=== PATIENT | female | born 1965 | race Caucasian/White ===

== ENCOUNTER → 2018-06-19 10:05 | Outpatient (CLI) | payer BC | END | disposition home or self-care (01) | LOC: D.HCCARDIO 10:00 | DX: I20.9 Angina pectoris, unspecified (principal) ==

== ENCOUNTER 2018-08-07 11:10 | Outpatient (CLI) | payer BC ==
[~2018-08-07] VITALS: Ht 165.1 cm; Wt 127.3 kg
--- NOTE | ~2018-08-07 | HEMODYNAMI ---
PATIENT:ALEXIS EDMONDS MEDICAL RECORD: [id number] : 65 LOCATION:[facility] ADMISSION DATE: 08/07/18 Generatedon:08/07/201815:26 Patient name: ALEXIS EDMONDS Patient #: [id number] SSN: D OB: 1965 Date of study: 08/07/2018 Page: Of Hemodynamic Procedure Report Patient Data Patient Demographics Procedure consent was obtained First Name: ALEXIS Gender: Female Last Name: GREY : 1965 Patient #: [id number] Age: 52 year(s) Race: Unknown Additional ID: [id number] Contact details [address]: [address] [place] [address] State: [place] City: [place] Zip code: [address] Admission Admission Data Admission Date: 08/07/2018 Admission Time: 11:10 Procedure Procedure Types Cath Procedure Diagnostic Procedure LHC LHC w/Coronaries Procedure Description Procedure Date Procedure Date: 08/07/2018 Procedure Start Time: 15:15 Procedure End Time: 15:25 Procedure Staff Name Function Jose R Thurman RT Monitor Tru Shipley RN Nurse Divine Richmond RT Scrub Robert Rosas MD Performing Physician Procedure Data Cath Procedure Fluoroscopy Diagnostic fluoroscopy Total fluoroscopy Time: 1.3 time: 1.3 min min Diagnostic fluoroscopy Total fluoroscopy dose: 254 dose: 254 mGy mGy Contrast Material Contrast Material Type Amount (ml) Isovue 300 57 Entry Location Entry Primary Successful Side Size Upsize Upsize Entry Closure Johnson ccessful Closure Location (Fr) 1 (Fr) 2 (Fr) Remarks Device Remarks Radial Right 6 Fr Mechanical artery Short Compression Estimated blood loss: 10 ml Diagnostic catheters Device Type Used For End Catheter Placement DIAGNOSTIC [place] 110cm 5 Procedure Fr catheter (060875) Procedure Complications No complications Procedure Medications Medication Administration Route Dosage 0.9% NaCl I.V. 100 ml/hr Oxygen etCO2 Nasal cannula 2 l/min Heparin Flush Bag added to field 2 bags (1000units/500ml NS) Lidocaine 2% added to field 20 Radial Cocktail added to field 1 syringe (Verapomil 2mg/Nitro 400mcg/Heparin 1500units) Versed I.V. 2 mg Fentanyl I.V. 100 mcg Versed I.V. 1 mg Radial Cocktail I.A. 1 syringe (Verapomil 2mg/Nitro 400mcg/Heparin 1500units) Hemodynamics Rest Heart Rate: 71 (bpm) Pressure Samples Time Site Value (mmHg) Purpose Heart Use Rate(bpm) 15:18 LV 119/-19,2 Snapshot 78 Gradients Valve Time Site Site Mean SEP/DFP Peak To Heart Use 1 2 (mmHg) (sec/min) Peak Rate (mmHg) (bpm) Aortic 15:18 LV AO 77 Snapshots Pre Cath Intra NCS Post Cath Vital Signs Time Heart Resp SPO2 etCO2 NIBP Rhythm Pain Sedation Rate (ipm) (%) (mmHg) (mmHg) Status Level (bpm) 15:08:29 68 21 99 6.7 125/74(94) NSR 0 (11) 10(A) , No pain 15:12:57 73 20 90 12.6 120/71(90) NSR 0 (11) 10(A) , No pain 15:17:21 76 18 96 5.2 124/70(93) NSR 0 (11) 10(A) , No pain 15:21:48 81 22 93 7.4 119/72(87) NSR 0 (11) 10(A) , No pain Medications Time Medication Route Dose Verified Delivered Reason Notes Effectiveness by by 15:06:19 0.9% NaCl I.V. 100 Tru Tru Per ml/hr Lorigan Quinten physician RN RN 15:06:28 Oxygen etCO2 2 l/min Tru Tru Per Nasal Quinten Shipley physician cannula RN RN 15:06:40 Heparin Flush added 2 bags Tru Tru used for Bag to Lorigan Lorigan procedure (1000units/500ml field RN RN NS) 15:06:52 Lidocaine 2% added 20ml Tru Tru for local to vial Lorigan Lorigan anesthetic field RN RN 15:07:03 Radial Cocktail added 1 Tru Tru used for (Verapomil to syringe Lorigan Lorigan procedure 2mg/Nitro field RN RN 400mcg/Heparin 1500units) 15:12:59 Versed I.V. 2 mg Tru Tru for sedation Lorigan Lorigan RN RN 15:13:09 Fentanyl I.V. 100 mcg Tru Tru for sedation Quinten Shipley RN, RN 15:15:06 Versed I.V. 1 mg Tru Tru for sedation Quinten Shipley RN, RN 15:17:07 Radial Cocktail I.A. 1 Trumariia Jones for (Verapomil syringe Quinten borrero 2mg/Nitro RN 400mcg/Heparin 1500units) Procedure Log Time Note 14:40:33 Tru Shipley RN sent for patient. Start room use. 14:55:52 Time tracking: Regular hours (M-F 7:00 - 5:00) 14:55:55 Plan of Care:Hemodynamics will remain stable., Cardiac rhythm will remain stable., Comfort level will be maintained., Respiratory function will remain adequate., Patient/ family verbilizes understanding of procedure., Procedure tolerated without complication., Recovers from procedure without complications.. 14:56:04 Patient received from Pre/Post Procedure Room to CCL 3 Alert and oriented. Tansferred to table in Supine position. 14:56:05 Warm blankets applied, and lenin hugger turned on for patient comfort. 14:56:06 Correct patient and procedure confirmed by team. 14:56:07 Signed procedure consent form obtained from patient. 14:56:07 ECG and BP/O2 sat monitors applied to patient. 15:06:19 0.9% NaCl 100 ml/hr I.V. was administered by Tru Shipley RN; Per physician; 15:06:28 Oxygen 2 l/min etCO2 Nasal cannula was administered by Tru Shipley RN; Per physician; 15:06:40 Heparin Flush Bag (1000units/500ml NS) 2 bags added to field was administered by Tru Shipley RN; used for procedure; 15:06:52 Lidocaine 2% 20ml vial added to field was administered by Tru Shipley RN; for local anesthetic; 15:07:03 Radial Cocktail (Verapomil 2mg/Nitro 400mcg/Heparin 1500units) 1 syringe added to field was administered by Tru Shipley RN; used for procedure; 15:07:07 Vital chart was started 15:09:41 Baseline sample Acquired. 15:09:46 Rhythm: sinus rhythm 15:09:47 Full Disclosure recording started 15:10:00 H&P Date Dictated: 07/06/2018 Within 30 days and on chart., H&P Addendum completed by physician on day of procedure. (MUST COMPLETE FOR ALL OUTPATIENTS). 15:10:00 Pre-procedure instructions explained to patient. 15:10:01 Pre-op teaching completed and patient verbalized understanding. 15:10:03 Family in waiting room. 15:10:04 Patient NPO since Midnight. 15:10:06 Is the patient allergic to Iodine/contrast media? No. 15:10:07 Is patient on blood thinner?No 15:10:09 Patient diabetic? No. 15:10:26 Previous problem with sedation/anesthesia? No ? 15:10:27 Snore? Yes 15:10:28 Sleep apnea? Yes 15:10:29 Deviated septum? No 15:10:29 Opens mouth fully? Yes 15:10:30 Sticks out tongue? Yes 15:10:31 Airway obstruction? No ? 15:10:33 Dentures? No ? 15:10:35 Pre procedure: right dorsailis pedis pulse 1+ Palpable, but thready & weak; easily obliterated 15:10:44 Modified Jimy's test Ulnar < 7 seconds 15:10:47 Patient pain scale 0/10 ?. 15:11:30 IV patent on arrival in left forearm with 0.9% NaCl at [facility]. 15:11:33 Lab results completed and on chart. 15:11:38 Right Radial & Right Groin area was prepped with chlora-prep and draped in sterile fashion 15:11:39 Alarms reviewed by R. N. 15:11:39 Sharps counted by scrub and verified by R.N. 15:11:43 Use device set Radial Dx or PCI 15:12:14 --------ALL STOP TIME OUT------ 15:12:15 Final Timeout: patient, procedure, and site verified with staff and physician. All members of the team are in agreement. 15:12:17 Right Radial & Right Groin site verified by team. 15:12:19 Physical assessment completed. ASA score P 2 - A patient with mild systemic disease as per Robert Rosas MD. 15:12:23 Sedation plan: IV Moderate Sedation Medication:Versed, Fentanyl 15:12:59 Versed 2 mg I.V. was administered by Tru Shipley RN; for sedation; 15:13:09 Fentanyl 100 mcg I.V. was administered by Tru Shipley RN; for sedation; 15:15:06 Versed 1 mg I.V. was administered by Tru Shipley RN; for sedation; 15:15:44 Procedure started. 15:15:50 Local anesthetic to right radial artery with Lidocaine 2% by Robert Rosas MD.INITIAL ACCESS ONLY 15:16:32 Tegaderm 4 x 4 (1626W) opened to sterile field. 15:16:33 ACIST Manifold (96224) opened to sterile field. 15:16:34 ACIST Hand Control (80460) opened to sterile field. 15:16:35 ACIST Syringe (59206) opened to sterile field. 15:16:36 Medline Cath Pack ([id number]) opened to sterile field. 15:16:36 Bag Decanter (2002S) opened to sterile field. 15:16:37 DIAGNOSTIC WIRE .035 260cm J wire (511017) opened to sterile field. 15:16:37 MBrace Wrist Support ([id number]) opened to sterile field. 15:16:40 SHEATH 6FR RAIN (4072899) NO COST SUPPLY opened to sterile field. 15:16:52 A 6 Fr Short sheath was inserted into the Right Radial artery 15:17:07 Radial Cocktail (Verapomil 2mg/Nitro 400mcg/Heparin 1500units) 1 syringe I.A. was administered by Robert Rosas MD; for vasodilation; 15:17:43 A DIAGNOSTIC [place] 110cm 5 Fr catheter (681402) was advanced over the wire and used for Procedure. 15:18:32 LV angiography performed. 15:18:34 LV gram done using FERNANDEZ 15:18:47 EF : 60 % 15:18:57 LV hemodynamics recorded. 15:18:59 Injector settings: Ml/sec: 7, Volume: 15, 15:19:44 LCA angiography performed. 15:20:43 RCA angiography performed. 15:21:39 Catheter removed. 15:21:41 TR BAND Large ([id number]) opened to sterile field. 15:21:51 Sheath removed intact; hemostasis achieved with Mechanical Compression to the Right Radial artery. 15:21:53 Procedure ended.(Physican Out) 15:22:19 Fluoroscopy time 01.30 minutes. 15:22:24 Fluoroscopy dose: 254 mGy 15:22:24 Flurop Dose total: 254 15:22:30 Contrast amount:Isovue 300 57ml. 15:22:32 Sharps counted by scrub and verified by R.N. 15:22:36 TR band inflated with 10cc of air. 15:22:40 Insertion/operative site no bleeding no hematoma. 15:22:46 Post-procedure physical assessment completed. ASA score P 2 - A patient with mild systemic disease as per Robert Rosas MD. 15:22:51 Post procedure rhythm: unchanged. 15:22:55 Estimated blood loss: 10 ml 15:23:23 Post procedure instruction explained to patient.Patient verbalizes understanding. 15:23:23 Patient needs reinforcement of post procedure teaching. 15:23:33 Procedure and supply charges have been captured, reviewed, submitted and are correct. 15:23:35 Procedure Complication : No complications 15:24:27 Vital chart was stopped 15:24:27 See physician's report for complete and final results. 15:24:36 Report given to Pre/Post Procedure Room. 15:24:41 Patient transfered to Pre/Post Procedure Room with Stretcher. 15:25:35 Procedure ended. 15:25:35 Full Disclosure recording stopped 15:26:03 End room use (Document Last) Device Usage Item Name Manufacture Quantity Catalog Hospital Part Current Minimal Lot# / Number Charge Number Stock Stock Serial# Code Tegaderm 4 3M 1 1626W [id number] 701761 5 x 4 (1626W) ACIST Acist 1 93709 343081 286774 991342 5 Manifold Medical (90497) Systems Inc ACIST Hand Acist 1 89267 078566 382453 850412 5 Control Medical (20521) Systems Inc ACIST Acist 1 98123 616443 095618 186050 20 Syringe Medical (17329) Systems Inc Medline Medline 1 [id number] 721441 08546 955752 5 Cath Pack ([id number]) Bag Microtek 1 5507886 89937 913847 5 Decanter Medical Inc. () DIAGNOSTIC [facility] 1 610360 703484 500483 560493 30 WIRE .035 260cm J wire (064162) MBrace Advanced 1 140-0250-00 758044 60930 836423 5 Wrist Vascular Support Dynamics (078551803) SHEATH 6FR Cardinal 1 7032410 354382 671435 5 [facility] (0132260) NO COST SUPPLY DIAGNOSTIC Terumo 1 40-9118 327293 905749 441005 5 [place] 110cm 5 Fr catheter (985493) TR BAND Terumo 1 [id number] 361076 495357 283388 40 Large ([id number]) Signature Audit [place] Stage Time Signature Unsigned Intra-Procedure 08/07/2018 Jose R Thurman 3:26:26 PM RT(R) Signatures Monitor : Jose R Thurman RT Signature : Date : Time : [address] [address]
[2018-08-07] MEDS ORDERED: NORCO 10-325 TA1 TAB PO (11:49)
[2018-08-07] MEDS ORDERED: XANAX0.5 MG PO (11:50)
[2018-08-07] MEDS ORDERED: CELEBREX200 MG PO (11:50)
[2018-08-07] MEDS ORDERED: ZANAFLEX4 MG PO (11:51)
[2018-08-07] MEDS ORDERED: MAXZIDE 75/501 TAB PO (11:52)
[2018-08-07 12:11] VITALS: BP 131/70; Ht 165.1 cm; Wt 127.3 kg
[2018-08-07 12:39] LABS: BASOPHILS 0.4 % (0-2); EOSINOPHILS 2.1 % (0-7); HEMATOCRIT 42.2 % (36.0-48.0); HEMOGLOBIN 13.9 g/dL (12-16); IMMATURE GRANULOCYTES 0.1 % (0-5); LYMPHOCYTES 24.2 % (15-50); MCH 31.3 pg (26.0-34.0); MCHC 32.9 g/dL (31.0-37.0); MEAN PLATELET VOLUME 10.1 fL (7.4-10.4); MONOCYTES 6.2 % (2-11); PLATELET COUNT 159 10x3/uL (130-400); RBC 4.44 10x6/uL (4.00-5.40); RDW 13.1 % (11.5-14.5); WBC 8.4 10x3/uL (4.8-10.8)
[2018-08-07 12:45] LABS: CALC OSMOLALITY 282 mosm/kg (275-300); CALCIUM 8.8 mg/dL (8.5-10.1); CARBON DIOXIDE 28.5 mmol/L (21.0-32.0); CHLORIDE - SERUM 106 mmol/L (98-107); CREATININE - SERUM 0.8 mg/dL (0.6-1.3); GLUCOSE 97 mg/dL (74-106); POTASSIUM - SERUM 3.9 mmol/L (3.5-5.1); SODIUM 142 mmol/L (136-145); UREA NITROGEN 12 mg/dL (7-18); eGFR NON AFRICAN AMERICAN 80 mL/min (90-120)
--- NOTE | 2018-08-07 14:40 | NUR ---
PT RECEIVED VIA STRETCHER FROM SOLUTION MANAGER FOR RECOVERY. PT AWAKE AND ALERT, TR BAND TO R WRIST NO BLEEDING OR HEMATOMA NOTED. PT DENIES PAIN OR NAUSEA. HR NRS RATE 69, BP 114/70, O2 SAT 95 ON 2L/NC. CALL LIGHT IN REACH.
--- NOTE | 2018-08-07 16:00 | NUR ---
PT SITTING IN SEMI FOWLERS, SANDWICH SERVED. TR BAND IN PLACE, NO BLEEDING OR SWELLING NOTED. CALL LIGHT IN REACH. DENIES PAIN OR NEEDS.
--- NOTE | 2018-08-07 16:33 | NUR ---
PT WATCHING TV, DENIES PAIN OR NEEDS. TR BAND AND IMMOBILIZER IN PLACE NO BLEEDING OR HEMATOMA NOTED. HR NSR RATE 65, BP 122/72. CALL LIGHT IN REACH AND SON AT BEDSIDE.
--- NOTE | 2018-08-07 16:54 | NUR ---
4CC OF AIR REMOVED FROM TR BAND. NO BLEEDING OR SWELLING NOTED.
--- NOTE | 2018-08-07 17:03 | NUR ---
PT RESTING W EYES CLOSED, TR BAND IN PLACE, NO BLEEDING OR SWELLING NOTED. CALL LIGHT IN REACH, DENIES NEEDS.
--- NOTE | 2018-08-07 17:15 | NUR ---
3 ADD'L CC OF AIR REMOVED FROM TR BAND, NO BLEEDING OR SWELLING NOTED. EXTREMITY REMAINS WARM AND PINK, CAP REFILL BRISK. DENIES NEEDS
--- NOTE | 2018-08-07 17:41 | NUR ---
DISCHARGE INSTRUCTIONS REVIEWED W PT AND SON, BOTH VERBALIZED UNDERSTANDING. IV REMOVED W CATH INTACT, MONITORS REMOVED. PT UP TO DRESS FOR DISCHARGE
--- NOTE | 2018-08-07 17:54 | NUR ---
TR BAND AND REMAINING AIR REMOVED. NO BLEEDING OR SWELLING NOTED. 2X2 AND TEGADERM DRESSING APPLIED. PT DISCHARGED VIA WC TO PRIVATE VEHICLE.
== END 2018-08-07 17:55 | disposition home or self-care (01) ==
LOC: D.CATH 11:10
PROVIDERS: Internal Medicine Cardiovascular Disease
DX: R94.39 Abnormal result of other cardiovascular function study (principal); Z01.812 Encounter for preprocedural laboratory examination

== ENCOUNTER 2019-01-15 08:00 | Outpatient (CLI) | payer BC ==
[2018-08-07 12:11] VITALS: BMI 46.6
[~2019-01-15 08:00] MED LIST: CELEBREX200 MG PO; MAXZIDE 75/501 TAB PO; NORCO 10-325 TA1 TAB PO; XANAX0.5 MG PO; ZANAFLEX4 MG PO
== END 2019-01-15 23:59 | disposition home or self-care (01) ==
LOC: D.MAMMO 08:00
PROVIDERS: ATTEND Emergency Medicine
DX: Z12.31 Encounter for screening mammogram for malignant neoplasm of breast (principal)

== ENCOUNTER 2019-05-18 05:30 | Day surgery (SDC) | payer BC ==
[2019-05-15 14:21] LABS: HEMATOCRIT 46.7 % (36.0-48.0); HEMOGLOBIN 15.1 g/dL (12-16); MCH 31.7 pg (26.0-34.0); MCHC 32.3 g/dL (31.0-37.0); MCV 98.1 fL (80.0-100.0); MEAN PLATELET VOLUME 10.4 fL (7.4-10.4); RBC 4.76 10x6/uL (4.00-5.40); RDW 13.1 % (11.5-14.5); WBC 10.4 10x3/uL (4.8-10.8)
[2019-05-15 14:40] LABS: CALC OSMOLALITY 279 mosm/kg (275-300); CALCIUM 8.9 mg/dL (8.5-10.1); CARBON DIOXIDE 26.3 mmol/L (21.0-32.0); CHLORIDE - SERUM 106 mmol/L (98-107); CREATININE - SERUM 0.8 mg/dL (0.6-1.3); GLUCOSE 87 mg/dL (74-106); SODIUM 141 mmol/L (136-145); UREA NITROGEN 12 mg/dL (7-18); eGFR NON AFRICAN AMERICAN 79 mL/min (90-120)
[2019-05-18] VITALS (17 sets, daily range): BP systolic 101–154; BP diastolic 61–76; Ht 165.1 cm; Wt 130.2 kg
[~2019-05-18] VITALS: Ht 165.1 cm; Wt 130.2 kg
[~2019-05-18 05:30] MED LIST changes: +BUTRANS1 EAC1 TRANSDERM
[2019-05-18] MEDS ORDERED: CYMBALTA60 MG PO (06:21)
[2019-05-18] MEDS ORDERED: BREO ELLIPTA 11 EACH INH (06:22)
[2019-05-18] MEDS ORDERED: LASIX20 MG PO (06:22)
[2019-05-18 06:52] LABS: HCG URINE NEGATIVE (NEGATIVE)
--- NOTE | 2019-05-18 10:59 | NUR ---
REC'D PT TO CVICU. ALL MONITORING EQUIPMENT ATTACHED AND ALARMS SET. PT AWAKE AND FOLLOWING COMMAND. VSS. L NECK INCISION WITH ICE PK. INCISION CDI.
--- NOTE | 2019-05-18 16:13 | NUR ---
pt taking cl with out problems. advance diet complete.
--- NOTE | 2019-05-18 19:30 | NUR ---
REPORT RECEIVED INITIAL ASSESSMENT COMPLETE. PT SITTING UP IN CHAIR. C/O NAUSEA AND STATES SHE HAS BEEN NAUSEATED MOST OF AFTERNOON. NOT SURE IF NAUSEA RELATED TO PO MEDICATION OR ANESTHESIA. PT STATED SHE JUST FELT LIKE SHE NEEDED SOMETHING ON HER STOMACH. SHE STATES "PAIN IS TOLERABLE AT 4 ON 1-10 SCALE. INFORMED PT TO NOT LET PAIN GET TOO SEVERE SHE STATES SHE TAKES THE HYDROCODONE AT HOME AND HAS FOR YEARS. LEFT NECK INCISION CLEAN WITH NO REDNESS ODOR OR HEAT GLUE INTACT. PT DRINKING WATER WITHOUT DIFFICULTY STATES "MY THROAT IS A LITTLE SORE BUT NOT TOO BAD" DENIES ANY DIFFICULTY SWALLOWING. C COLLAR IN PLACE. CM READING SR WITHOUT ECTOPY ROOM AIR WITH O2 SAT 94% STATES SHE HAS HER HOME CPAP AND WILL USE TONIGHT AT HOUR SLEEP. CL IN REACH VSS WILL CONTINUE TO MONITOR
--- NOTE | 2019-05-18 19:44 | NUR ---
ASST PT TO BATH ROOM TO VOID WEARING SOFT COLLAR. PT MONALISA WELL.
--- NOTE | 2019-05-18 20:30 | NUR ---
ANSWERED PTS CALL LIGHT ASSISTED BACK TO BED. C COLLAR IN PLACE PT STATES STILL NAUSEATED BUT NOT SEVERE AT THIS TIME. BED LOW POSITION SIDE RAILS UP TIMES 3 FOR BED MOBILITY AND SAFETY. CALL LIGHT IN REACH.
--- NOTE | 2019-05-18 22:00 | NUR ---
HOME CPAP ON AT THIS TIME. PT STATES SHE IS NO LONGER NAUSEATED. ICE PACKS TO NECK AND BACK OF NECK CPOC
--- NOTE | 2019-05-18 22:50 | NUR ---
ANSWERED PTS CALL LIGHT SHE IS REQUESTING PAIN MED SEE EMAR PRN
[2019-05-19] VITALS (16 sets, daily range): BP systolic 92–157; BP diastolic 49–85
--- NOTE | 2019-05-19 00:15 | NUR ---
ANSWERED PTS CALL LIGHT SHE NEEDS ASSIST TO BATHROOM. MINIMAL ASSIST PT STEADY GAIT TO BATHROOM PT URINATES CLEAR YELLOW URINE WITHOUT DIFFICULTY. STATES SHE FEELS BETTER NOW DENIES NAUSEA. ASSISTED BACK TO BED. BED LOW POSITION CL IN REACH. WILL CONTINUE TO MONITOR.
--- NOTE | 2019-05-19 00:20 | NUR ---
PTS ICE PACKS HAD LEAKED WHILE PT IN RESTROOM. COMPLETE LINEN CHANGE
--- NOTE | 2019-05-19 02:00 | NUR ---
INTO CHECK ON PATIENT LEFT NECK INCISION CLEAN DRY. VSS AT THIS TIME DENIES PAIN CPOC
--- NOTE | 2019-05-19 03:00 | NUR ---
REASSESSMENT MADE. NO CHANGES VSS CPOC PT DENIES PAIN AT THIS TIME. CL IN REACH BED IN LOW POSITION. PT HAS LOWER BACK DISCOMFORT FROM BED AND CHRONIC PAIN EGGCRATE SQUARE PLACED UNDER HIP HELPED
--- NOTE | 2019-05-19 05:00 | NUR ---
ANSWERED PTS CALL LIGHT SHE IS REQUESTING COFFEE. PT DENIES PAIN "I FEEL SO MUCH BETTER I CAN TELL MY NECK AND ARMS FEEL BETTER". CL IN REACH BED IN LOW POSITION VSS CPOC
--- NOTE | 2019-05-19 06:15 | NUR ---
ANSWERED PTS CALL LIGHT NEEDING UP TO RESTROOM. MINIMAL ASSIST THEN ASSIST TO CHAIR.
--- NOTE | 2019-05-19 06:20 | NUR ---
UP TO CHAIR REQUESTS PAIN MED SEE EMAR PRN MEDS. BATH SET UP GIVEN PT NOT READY FOR BATH YET BUT WILL WHEN PAIN MED WORKS
--- NOTE | 2019-05-19 07:40 | NUR ---
REPORT RECEIVED. SHIFT ASSESSMENT COMPLETE. PT SITTING UP IN CHAIR AT BEDSIDE. LEFT NECK INCISION OPEN TO AIR. WNL. PT HAD BEEN RECENTLY GIVEN PAIN MEDICATION, AND WHEN QUESTIONED ABOUT RESPONSE FEELS IT IS 'BETTER NOW" AWAITING BREAKFAST, SAYS HAS BEEN AWAKE SINCE 4:30. DENIES NAUSEA.
--- NOTE | 2019-05-19 08:25 | NUR ---
PT ASSISTED UP TO TOILET. STANDBY ASSIST ONLY. ASKED TO RETURN TO BED. SCDS PLACED. CALL LIGHT IN REACH.
--- NOTE | 2019-05-19 09:37 | NUR ---
ICE PACKS PROVIDED TO PATIENT
--- NOTE | 2019-05-19 11:22 | NUR ---
REASSESSMENT COMPLETE. SEE FLOWSHEET FOR FINDINGS. PT DENIES NEEDS AT THIS TIME. CALL LIGHT IN REACH.
--- NOTE | 2019-05-19 12:45 | NUR ---
PT ASSSITED UP TO TOILET. SOFT COLLAR ON. PERFORMED ADL'S INDEPENDENTLY. RETURNED TO CHAIR AT BEDSIDE
--- NOTE | 2019-05-19 13:37 | NUR ---
PT PROVIDED WITH MORE ICE REQUESTED FOR ICE PACKS
--- NOTE | 2019-05-19 14:58 | NUR ---
DR BELLA HAS BEEN IN TO SEE PATIENT. DISCHARGE ORDERS RECEIVED. IV REMOVED TO RIGHT FOREARM.
--- NOTE | 2019-05-19 15:46 | NUR ---
DISCHARGE INSTRUCTIONS PROVIDED TO PATIENT. WRITTEN PRESCRIPTIONS FOR NORCO AND ROBAXIN PROVIDED. UNDERSTANDS PLAN FOR FOLLOW UP.
--- NOTE | 2019-06-15 09:47 | OP ---
PATIENT NAME: ALEXIS EDMONDS MEDICAL RECORD: [id number] :65 LOCATION:[facility] ADMISSION DATE: SURGEON: MARYBETH BELLA MD DATE OF OPERATION: 05/18/2019 PREOPERATIVE DIAGNOSIS: C6 and C7 radiculopathy secondary to osteophyte formation and disc protrusion at C5-C6 and C6-C7. PROCEDURE: Anterior cervical discectomy and fusion at C5-C6 and C6-C7 with PEEK interbody cages, separate anterior cervical plate and screws, removal of osteophytes. SURGEON: Marybeth Bella MD DESCRIPTION AND TECHNIQUE: After induction of general endotracheal anesthesia, the patient was positioned supine on the operating table. Neck was prepped and draped in usual sterile fashion. Fluoroscopic x-ray and freer localized the C6 vertebral body. After infiltration of 1:100,000 epinephrine with 1% lidocaine, a transverse skin incision was carried out from the midline to the sternocleidomastoid muscle. The platysma was divided with 15-blade. Using blunt and sharp dissection with Metzenbaum scissors, I proceeded in the avascular plane medial to the carotid sheath. The C5-C6 and C6-C7 interspaces were identified with fluoroscopic x-ray and a spinal needle. Osteophytes removed anteriorly with Adson rongeurs. Self-retaining retractors were placed deep in the longus colli muscles. Paterson distracting pins were placed in the bodies of C5, C6, and C7. Levels were confirmed with fluoroscopic x-ray. Each disc space was incised with a #11 blade. Series of curettes and pituitary rongeurs were used to remove the disc material from the disc space and prepare the endplates. Under microscopic illumination, osteophytes were drilled away posteriorly at each level with a Midas-Nestor drill. The posterior longitudinal ligament was removed with 2-mm Cloward rongeurs. Foraminotomy was carried out on both levels. The dura was decompressed well. A PEEK interbody cage 7 mm with 6 degrees lordosis was placed in each interspace under distraction. Prior to this, it was filled with Linda DBM allograft. A separate Zavation anterior cervical plate and screws was used to span the C5-C6 and C6-C7 interspaces. Then, 16-mm screws were placed through the holes of the plate. Good position of the hardware was confirmed with fluoroscopic x-ray. Locking cams were tightened down over the screw heads. Meticulous hemostasis was maintained throughout the wound. The wound was irrigated with copious amounts of Ancef irrigant solution. The platysma and subdermal layer closed with interrupted 3-0 Vicryl suture. The skin was reapproximated with Steri-Strips and benzoin. A sterile dressing was applied to the wound. The patient was awakened in good condition and taken to recovery. All counts were reported as correct. Estimated blood loss was minimal. TRANSINT:[id number] Voice Confirmation ID: [id number] DOCUMENT ID: [id number] OPERATIVE REPORT [id number] ALEXIS EDMONDS, MARYBETH DENNY at 0947 CC: [id number] DICTATION DATE: 06/15/19820 TALENT SOURCER: 06/15/1937 [facility] 05/19/[address] [address]
== END 2019-05-19 15:47 | disposition home or self-care (01) ==
LOC: D.OPS 05:30 → D.PAN 07:30 → D.OPS 08:30 → D.PAN 08:30 → D.CVICU 10:47 → D.OPS 05-19 15:47
PROVIDERS: Anesthesiology; ATTEND Neurological Surgery
DX: M54.12 Radiculopathy, cervical region (principal); M25.78 Osteophyte, vertebrae